=== PATIENT | male | born 1985 | race Caucasian/White ===

== ENCOUNTER 2017-09-09 16:18 | Emergency (ER) | payer BC, OTHER ==
--- NOTE | 2017-09-09 16:42 | PDOC ---
Rapid Medical Evaluation Chief Complaint: Headache Time Seen by Provider: 09/09/17 16:37 Medical Evaluation: Allergies Allergy/AdvReac Type Severity Reaction Status Date / Time No Known Drug Allergies Allergy Verified 09/09/17 16:36 09/09/17 16:37 I have performed a brief in-person evaluation of this patient. The patient presents with a chief complaint of: [employer], [employer] x 3 days s/p injury at work, fell on R side of head, now area behind eyes hurts, "sometimes blurry vision", feels drowsy, seen at [facility] no head CT, denies nausea, denies difficulty walking/speaking/swallowing, denies weakness Pertinent physical exam findings: well appearing, no focal deficits I have ordered the following: head CT The patient will proceed to the ED for further evaluation. Discharge Disposition - Diagnosis Headache - Referrals - Patient Instructions - Post Discharge Activity
[2017-09-09 16:46] VITALS: BMI 27.3
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
[2017-09-09 20:09] VITALS: BP 146/89; PULSE 77; TEMP 97.7
== END 2017-09-09 20:05 | disposition home or self-care (01) ==
LOC: JER 16:18
DX: S06.0X0A Concussion without loss of consciousness, initial encounter (principal); Y35.891A Legal intervention involving other specified means, law enforcement official injured, initial encounter; Y93.89 Activity, other specified; Y92.89 Other specified places as the place of occurrence of the external cause; W18.30XA Fall on same level, unspecified, initial encounter; Y99.0 Civilian activity done for income or pay
CPT/HCPCS: 70450-TC; 99282-25